=== PATIENT | male | born 1965 | race Two or more races ===

== ENCOUNTER 2021-09-16 10:44 | Outpatient (CLI) | payer OTHER | END 2021-09-16 10:45 | disposition home or self-care (01) | LOC: LAB 10:44 | PROVIDERS: ATTEND Urology | DX: R97.20 Elevated prostate specific antigen [PSA] (principal) ==

== ENCOUNTER 2021-10-11 07:09 | Outpatient (CLI) | payer OTHER | END 2021-10-11 07:24 | disposition home or self-care (01) | LOC: SONOGRAMA 07:09 | PROVIDERS: ATTEND Urology | DX: R97.20 Elevated prostate specific antigen [PSA] (principal); N40.1 Benign prostatic hyperplasia with lower urinary tract symptoms; N41.9 Inflammatory disease of prostate, unspecified ==